=== PATIENT | male | born 1980 | race Caucasian/White ===

== ENCOUNTER 2022-12-20 00:08 | Observation (INO) | payer OTHER, SELFPAY ==
[2022-12-20] VITALS (13 sets, daily range): BP systolic 117–139; BP diastolic 69–89; PULSE 42–66; RESP 13–18; TEMP 36.4–37.1; O2SAT 95–99; BMI 26.5
--- NOTE | 2022-12-20 00:09 | ED_ITS ---
HPI - Chest Pain General: Chief Complaint: Chest Pain Stated Complaint: CP Time Seen by Provider: 12/20/22 00:09 History of Present Illness: Mr. Bartlett is a 42-year-old gentleman with significant past medical history of CAD with prior NH presenting to the emergency department for evaluation of chest pain. He notes history of chronic chest pain however when laying down and trying to sleep at onset of severe heaviness in the left chest. Feels like previous NH. He initially had severe symptoms which have subsequently improved. Denies associated other typical cardiac features. No other specific changes in health, exacerbating, or alleviating factors identified. Onset (ago): minute(s) Timing of current episode: constant Prior episodes: Yes Onset: during rest Pain location: left chest Pain radiation: none Severity: severe Quality: aching and heaviness Relieving factors: nothing Exacerbating factors: nothing Associated symptoms: Reports no associated symptoms Review of Systems General: Reports: 10 or more systems reviewed and unremarkable except in HPI and below PFSH ED PFSH: Medical History (Updated 01/01/23 @ 10:22 by Radha Torres) Bipolar disorder Bradycardia Chest pain Depression Heart attack has had around 30 different ones since age 24 History of blood clots present in lung during a surgery Psychiatric care PTSD (post-traumatic stress disorder) Surgical History History of fasciotomy 2013 History of foot surgery right foot shrapnel removed History of shoulder surgery 2016 History of tonsillectomy Family History Mother Cancer breast Father Cancer testicular, brain, lung Other Bleeding disorder Dementia Diabetes Hypertension Lung disease Denies family history of CAD (coronary artery disease) Clotting disorder Hyperlipidemia Psychiatric illness Chronic kidney disease (CKD) Anesthesia complication Stroke Social History (Updated 12/31/22 @ 08:29 by Esteban Aguirre MD) Smoking and tobacco status: current every day smoker smokeless tobacco Smokeless tobacco user: chewing tobacco Smokeless tobacco details: 1 can a day currently/normal about a can per 3-4 days Alcohol intake: former Counseling given: Yes Substance/Drug Use: current Substance/Drug use frequency: daily Lives independently: Yes Marital status: Single Current occupational status: employed 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 Ann/Bahai: Taoism Special ann needs: No Agree to transfusion: Yes Physical Exam Const: COMMON NORMALS: alert GENERAL APPEARANCE: cooperative and well developed HENMT: COMMON NORMALS: normocephalic and atraumatic HEAD & SCALP: normocephalic and atraumatic Eye: COMMON NORMALS: conjunctivae normal CONJUNCTIVA: Yes conjunctivae normal SCLERA: sclerae normal Neck/C-Spine: COMMON NORMALS: supple GENERAL: Yes trachea midline Resp: COMMON NORMALS: clear to auscultation bilaterally EFFORT & INSPECTION: Yes able to speak in complete sentences AUSCULTATION: clear to auscultation bilaterally Cardio: COMMON NORMALS: regular rate and regular rhythm RATE: regular rate RHYTHM: regular rhythm GI: COMMON NORMALS: Soft to palpation PALPATION: Yes Soft to palpation and No Tenderness to palpation present (GI) Extremity: GENERAL: Yes normal exam except as noted and No edema Neuro: COMMON NORMALS: moves all extremities SENSORIUM/ORIENTATION: Yes alert and No Orientation impaired Psych: COMMON NORMALS: mental status grossly normal and Normal thought process present THOUGHT PROCESS: Normal thought process present Course Vital Signs: Vital signs: Vital Signs Temperature 98.7 F 12/20/22 16:34 Pulse Rate 44 L 12/20/22 16:34 Respiratory Rate 13 12/20/22 16:34 Blood Pressure 130/77 12/20/22 16:34 Pulse Oximetry 99 12/20/22 16:34 Oxygen Delivery Me thod Room Air 12/20/22 11:33 MDM - Chest Pain Medical Decision Making 42-year-old gentleman with cardiac history presenting due to chest pain. Exam as above. She demonstrates sinus bradycardia, normal axis and intervals, no STEMI. Patient is not on beta-blockers. Denies history of bradycardia. Labs notable for essentially unremarkable hematologic panel. Metabolic panel with hypokalemia. Negative range 2-hour delta troponin. Chest x-ray with no lobar consolidation or pneumothorax. Patient treated with magnesium and potassium replenishment. Not low risk by heart score. The results of ED evaluation were discussed with the patient including plan for admission due to requirement for level of care not available if discharged to prevent significant worsening/deterioration. Patient agreeable with plan. Discussed with hospitalist service who was agreeable to admit patient. Medical Records I reviewed the patient's medical records. Lab Data I reviewed the patient's lab results. 12/20/22 00:28 12/20/22 00:28 Radiology Impressions Chest X-Ray 12/20/22 00:23 IMPRESSION: Left basilar opacity may represent superimposition of shadows, atelectasis, inflammation, or infection. Chest CTA 12/20/22 05:22 IMPRESSION: No acute findings. Laboratory Results WBC 7.8 10^3/uL (4.0-10.0) 12/20/22 00:28 RBC 4.43 10^6/uL (4.1-5.3) 12/20/22 00:28 Hgb 13.3 g/dL (11.7-16.6) 12/20/22 00:28 Hct 38.3 % (42.0-52.0) L 12/20/22 00:28 MCV 86.5 fl (80-94) 12/20/22 00:28 MCH 30.0 pg (28.0-34.0) 12/20/22 00: MCHC 34.7 g/dL (30.0-36.0) 12/20/22 00:28 RDW 11.5 % (12.1-15.1) L 12/20/22 00:28 Plt Count 267 10^3/cmm (130-400) 12/20/22 00:28 MPV 9.9 fL (7.4-10.4) 12/20/22 00:28 Neut % (Auto) 40.0 % 12/20/22 00:28 Lymph % (Auto) 47.6 % 12/20/22 00:28 Bartholomew % (Auto) 8.3 % 12/20/22 00:28 Eos % (Auto) 3.2 % 12/20/22 00:28 Baso % (Auto) 0.8 % 12/20/22 00:28 Neut # (Auto) 3.11 10^3/uL (1.8-7.7) 12/20/22 00:28 Lymph # (Auto) 3.7 10^3/uL (0.8-4.8) 12/20/22 00:28 Bartholomew # (Auto) 0.7 10^3/uL (0.2-0.9) 12/20/22 00:28 Eos # (Auto) 0.3 10^3/uL (0.0-0.8) 12/20/22 00:28 Baso # (Auto) 0.1 10^3/uL (0.0-0.1) 12/20/22 00:28 Nucleated RBC % (auto) 0 % 12/20/22 00: Nucleated RBCs # 0.0 /100WBC 12/20/22 00:28 Sodium 140 mmol/L (136-145) 12/20/22 00:28 Potassium 2.9 mmol/L (3.5-5.1) L 12/20/22 00:28 Chloride 106 mmol/L (98-107) 12/20/22 00:28 Carbon Dioxide 22 mmol/L (22-29) 12/20/22 00:28 Anion Gap 14.9 (5-19) 12/20/22 00:28 BUN 11 mg/dL (6-20) 12/20/22 00:28 Creatinine 0.7 mg/dL (0.7-1.2) 12/20/22 00:28 GFR Calculation 124.3 mL/min (90-130) 12/20/22 00: Glucose 131 mg/dL (65-115) H 12/20/22 00:28 Calculated Osmolality 291 mOsm/kg (285-295) 12/20/22 00:28 Calcium 8.8 mg/dL (8.5-10.5) 12/20/22 00:28 Magnesium 1.7 mg/dL (1.7-2.3) 12/20/22 00:28 Total Bilirubin 0.5 mg/dL (0.15-1.2) 12/20/22 00:28 AST 24 U/L (0-40) 12/20/22 00:28 ALT 13 U/L (0-41) 12/20/22 00:28 Alkaline Phosphatase 60 U/L (40-130) 12/20/22 00:28 Troponin T Baseline 11 ng/L (0-15) 12/20/22 00:28 Troponin T 120 Minute 7.74 ng/L (0-15) 12/20/22 02:16 Delta Troponin T -3.26 ABS# (0-10) L 12/20/22 02:16 NT-Pro-B Natriuret Pep 36 pg/mL (0-125) 12/20/22 00:28 Total Protein 6.7 g/dL (6.6-8.7) 12/20/22 00:28 Albumin 4.1 g/dL (3.5-5.2) 12/20/22 00:28 Globulin 2.6 g/dL (1.3-4.6) 12/20/22 00:28 Lipase 22 U/L (13-60) 12/20/22 00:28 Discharge Plan Discharge Patient Disposition: Placed in Observation Admit Provider: Shireen Dodge Clinical Impression: Chest pain, Bradycardia Discharge Diet: Cardiac Discharge Activity: Increase activity as tolerated Coding Level of Care Code ED 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
--- NOTE | 2022-12-20 00:10 | ECG_ITS ---
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 Measurements Intervals [place] Rate: 59 P: 75 WV: 155 QRS: 77 QRSD: 97 T: 67 QT: 415 QTc: 412 Interpretive Statements SINUS BRADYCARDIA WITH SINUS ARRHYTHMIA No previous ECG available for comparison Electronically Signed On 12-20-2022 8:31:02 CDT by Jay Buckner M.D. [id number]
--- NOTE | 2022-12-20 00:23 | XRR_ITS ---
PROCEDURE INFORMATION: Exam: XR Chest Exam date and time: 12/20/2022 12:29 AM Age: 42 years old Clinical indication: Chest pressure; Patient HX: C/O chest pain; Additional info: Cp TECHNIQUE: Imaging protocol: Radiologic exam of the chest. Views: 1 view. COMPARISON: No relevant prior studies available. FINDINGS: Lungs: Left basilar opacity may represent superimposition of shadows, atelectasis, inflammation, or infection. No lung mass. Pleural spaces: Unremarkable. No pleural effusion. No pneumothorax. Heart/Mediastinum: Unremarkable. No cardiomegaly. Bones/joints: Unremarkable. XR/XR chest 1V portable [id number] IMPRESSION: Left basilar opacity may represent superimposition of shadows, atelectasis, inflammation, or infection.
[2022-12-20 00:37] LABS: Basophils # 0.1 10^3/uL (0.0-0.1); Basophils % 0.8 %; Eosinophils # 0.3 10^3/uL (0.0-0.8); Eosinophils % 3.2 %; Hematocrit 38.3 % (42.0-52.0); Hemoglobin 13.3 g/dL (11.7-16.6); Lymphocytes # 3.7 10^3/uL (0.8-4.8); Lymphocytes % 47.6 %; Mean Corpuscular HGB Conc 34.7 g/dL (30.0-36.0); Mean Corpuscular Volume 86.5 fl (80-94); Mean Platelet Volume 9.9 fL (7.4-10.4); Monocytes # 0.7 10^3/uL (0.2-0.9); Monocytes % 8.3 %; Neutrophils # 3.11 10^3/uL (1.8-7.7); Nucleated Red Blood Cells % 0 %; Platelet Count 267 10^3/cmm (130-400); Red Blood Count 4.43 10^6/uL (4.1-5.3); Red Cell Distribution Width 11.5 % (12.1-15.1); White Blood Count 7.8 10^3/uL (4.0-10.0)
[2022-12-20 00:55] LABS: Magnesium 1.7 mg/dL (1.7-2.3)
[2022-12-20 00:57] LABS: Troponin(5th) Baseline 11 ng/L (0-15)
[2022-12-20 01:07] LABS: Alanine Aminotransferase 13 U/L (0-41); Albumin Level 4.1 g/dL (3.5-5.2); Alkaline Phosphatase 60 U/L (40-130); Anion Gap 14.9 (5-19); Aspartate Amino Transferase 24 U/L (0-40); Blood Urea Nitrogen 11 mg/dL (6-20); Calcium 8.8 mg/dL (8.5-10.5); Carbon Dioxide 22 mmol/L (22-29); Chloride 106 mmol/L (98-107); Globulin 2.6 g/dL (1.3-4.6); Glomerular Filtration Rate 124.3 mL/min (90-130); Glucose 131 mg/dL (65-115); Lipase 22 U/L (13-60); NT Pro B Type Natriuretic Pept 36 pg/mL (0-125); Osmolality Calculated 291 mOsm/kg (285-295); Sodium 140 mmol/L (136-145); Total Bilirubin 0.5 mg/dL (0.15-1.2); Total Protein 6.7 g/dL (6.6-8.7)
[2022-12-20 01:11] LABS: Potassium 2.9 mmol/L (3.5-5.1)
[2022-12-20] MEDS: magnesium sulfate premix 2 GM/50 ML PIGGYBACK IV (01:14)
[2022-12-20] MEDS: potassium chloride ER 20 mEq Tablet 60 MEQ PO (01:21)
--- NOTE | 2022-12-20 02:23 | ECG_ITS ---
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 Measurements Intervals [place] Rate: 41 P: 70 MI: 160 QRS: 63 QRSD: 118 T: 64 QT: 505 QTc: 419 Interpretive Statements SINUS BRADYCARDIA MODERATE INTRAVENTRICULAR CONDUCTION DELAY [110+ ms QRS DURATION] NONSPECIFIC ST ELEVATION [0.05+ mV ST ELEVATION] No previous ECG available for comparison Electronically Signed On 12-20-2022 8:32:52 CDT by Jay Buckner M.D. [id number]
[2022-12-20 02:47] LABS: Troponin 5 2HR 7.74 ng/L (0-15)
[2022-12-20 03:07] LABS: Troponin 5 2HR Delta -3.26 ABS# (0-10)
--- NOTE | 2022-12-20 05:22 | CTR_ITS ---
PROCEDURE INFORMATION: Exam: CTA Chest With Contrast Exam date and time: 12/20/2022 5:39 AM Age: 42 years old Clinical indication: Dyspnea; Additional info: Previous pe TECHNIQUE: Imaging protocol: Computed tomographic angiography of the chest with contrast. Exam focused on the arteries. 3D rendering (Not supervised by radiologist): MIP and/or 3D reconstructed images were created by the technologist. Radiation optimization: All CT scans at this facility use at least one of these dose optimization techniques: automated exposure control; mA and/or kV adjustment per patient size (includes targeted exams where dose is matched to clinical indication); or iterative reconstruction. Contrast material: OMNI 350; Contrast volume: 68 ml; Contrast route: INTRAVENOUS (IV); REPORTING DATA: Count of CT and Cardiac NM exams in prior 12 months: This patient has received 0 known CTs and 0 known cardiac nuclear medicine studies in the 12 months prior to the current study. COMPARISON: CR (CHEST, ) 12/20/2022 12:29 AM RADIATION DOSE METRICS: Total DLP (mGy-cm): 383.65 FINDINGS: Pulmonary arteries: Normal. No pulmonary emboli. Aorta: Unremarkable. No aortic aneurysm. No aortic dissection. Lungs: Unremarkable. No consolidation. No masses. Pleural spaces: Unremarkable. No pneumothorax. No pleural effusion. Heart: Unremarkable. No cardiomegaly. No pericardial effusion. Lymph nodes: Unremarkable. No enlarged lymph nodes. Bones/joints: Unremarkable. No acute fracture. Soft tissues: Unremarkable. CT/CT angio chest PE protcl [id number] IMPRESSION: No acute findings.
--- NOTE | 2022-12-20 05:24 | USCV_ITS ---
Shukri Bartlett Age: 42 Gender: M : 1980 Exam Date: 12/20/2022 09:46 Ordering Phys: Shireen Dodge MD Technologist: Alfonso Davies Exam Location: [facility] [place] Indication: chest pain BP: 127 / 80 HR: 43 Rhythm: Sinus Technical Quality: MEASUREMENTS (Male / Female) Normal Values 2D ECHO LV Diastolic Diameter PLAX 4.3 cm 4.2 - 5.9 / 3.9 - 5.3 cm LV Systolic Diameter PLAX 2.6 cm IVS Diastolic Thickness 1.1 cm 0.6 - 1.0 / 0.6 - 0.9 cm IVS Systolic Thickness 1.7 cm LVPW Diastolic Thickness 1.0 cm 0.6 - 1.0 / 0.6 - 0.9 cm LVPW Systolic Thickness 1.5 cm LVOT Diameter 2.1 cm LV Ejection Fraction 2D Teich 69.7 % LV Ejection Fraction MOD 2C 62.1 % LV Ejection Fraction 2C AL 61.6 % LA Diameter 3.9 cm Aorta at Sinotubular Diameter 2.9 cm IVC Diameter 2.1 cm M-MODE Aortic Annulus Diameter 3.2 cm LA Ao Ratio MM 1.4 MV E Point Septal Separation 1.4 cm DOPPLER AV Peak Velocity 136.0 cm/s LVOT Peak Velocity 98.0 cm/s AV Area Cont Eq vti 2.7 cm squared AV Area Cont Eq pk 2.4 cm squared MV Area PHT 5.0 cm squared Mitral E to A Ratio 1.8 MV E' Velocity 52.0 cm/s Mitral E to MV E' Ratio 7.4 Mitral E to LV E' Lateral Ratio 5.9 Mitral E to LV E' Septal Ratio 10.2 TR Peak Velocity 180.5 cm/s TR Peak Gradient 13.0 mmHg TV Peak E Velocity 115.0 cm/s Right Atrial Pressure 3.0 mmHg Pulmonary Artery Systolic Pressu 16.0 mmHg FINDINGS Left Ventricle Left radial is normal in size. LV systolic unction is normal with EF of 50-55%. No regional wall motion abnormalities are seen. Right Ventricle Normal in size and function Right Atrium Normal in size Left Atrium Normal in size Mitral Valve Structurally normal mitral valve. Aortic Valve Structurally normal aortic valve. No significant stenosis or regurgitation. Tricuspid Valve Mild tricuspid regurgitation. Pulmonary artery systolic pressure is normal Pulmonic Valve Not well visualized Pericardium Normal Aorta Normal in size IVC Appears to be normal CONCLUSIONS LV systolic function is normal with EF of 50-55% Mild tricuspid regurgitation. No comparison studies are available Jay Buckner MD (Electronically Signed) Final Date: 20 December 2022 14:46 S
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
[2022-12-20] MEDS: iohexol 350 mg/mL 500 mL Btl (per mL) IV (05:46)
[2022-12-20] MEDS: enoxaparin 100 mg/mL Syringe 90 MG SUBCUT (05:56)
--- NOTE | 2022-12-20 06:23 | ECG_ITS ---
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 Measurements Intervals [place] Rate: 45 P: 54 ND: 152 QRS: 27 QRSD: 86 T: 46 QT: 464 QTc: 401 Interpretive Statements SINUS BRADYCARDIA WITH SINUS ARRHYTHMIA ST ELEVATION, PROBABLY EARLY REPOLARIZATION [ST ELEVATION WITH NORMALLY INFLECTED T-WAVE] Compared to ECG 12/20/2022 02:34:33 Early repolarization now present Intraventricular conduction delay no longer present ST (T wave) deviation still present Electronically Signed On 12-20-2022 13:13:49 CDT by Jay Buckner M.D. [id number]
[2022-12-20 06:39] LABS: Troponin 5 6HR 6.83 ng/L (0-15)
[2022-12-20 06:55] LABS: Troponin 5 6HR Delta -4.17 ng/L (0-12)
--- NOTE | 2022-12-20 07:51 | PC.PHAR ---
pt states he takes care of his own medications-pt states he has been on xarelto 20mg daily since 2013 pt states he ran out a month ago but states he is suppose to still be taking-pt states he also takes lamictal 25mg daily but states he ran out about 2 weeks ago-notes are made in the pharmacy comments
[2022-12-20] MEDS: aspirin 81 mg EC Tablet PO (08:13)
[2022-12-20] MEDS: pantoprazole DR 40 mg Tablet PO (08:14)
--- NOTE | 2022-12-20 10:44 | P.DS_ITS ---
Discharge Providers Date of Admission: 12/20/22 04:33 Date of Discharge: December 20, 2022 Attending Provider at Admission: Shireen Dodge MD Attending Provider at Discharge: Carissa Monae MD Diagnoses at Discharge Discharge Diagnosis (1) Chest pain: Status: Acute (2) Bradycardia: Status: Acute Reason for Visit Reason for Visit: CP Hospital Course Hospital Course 42-year male with history of PE noncompliant with anticoagulating agent, recently going through bereavement because of his father's over the weekend presented with chief complaint of chest pain radiating towards his left arm, troponins flat EKG showing incomplete right bundle branch block with sinus bradycardia, patient remained hemodynamically stable, no active symptoms, patient stating that in [place] he had Holter monitoring done which showed bradycardia lowest heart rate noted was 130s, he has not received any phone calls, 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 software engineering project manager notified. 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, patient was feeling potholes when he start experiencing chest pain Physical Exam Narrative: Euvolemic Hemodynamically stable Heart rate 59 Currently on room air Pleasant and cooperative No active chest pain GCS 15 Discharge Data Studies Completed and Pending Completed Studies During Hospitalization Category Date Time Status CTA chest [CT angio chest PE protcl [id number]] Stat Cat Scan 12/20/22 05:22 Completed XR chest 1V portable [id number] Stat Exams 12/20/22 00:23 Completed Pending at discharge Category Date Time Status Complete Blood Count w/Auto AM LABS Lab 12/21/22 04:00 Ordered Comprehensive Metabolic Panel AM LABS Lab 12/21/22 04:00 Ordered HBA1C [Hemoglobin A1C] AM LABS Lab 12/21/22 04:00 Ordered Lipid Panel AM LABS Lab 12/21/22 04:00 Ordered NT Pro B Type Natriuretic Pept AM LABS Lab 12/21/22 04:00 Ordered CV. echo complete* [id number] Routine Ultrasound 12/20/22 05:24 Taken Radiology Impressions Chest X-Ray 12/20/22 00:23 IMPRESSION: Left basilar opacity may represent superimposition of shadows, atelectasis, inflammation, or infection. Chest CTA 12/20/22 05:22 IMPRESSION: No acute findings. Laboratory Results WBC 7.8 10^3/uL (4.0-10.0) 12/20/22 00:28 RBC 4.43 10^6/uL (4.1-5.3) 12/20/22 00:28 Hgb 13.3 g/dL (11.7-16.6) 12/20/22 00: Hct 38.3 % (42.0-52.0) L 12/20/22 00: MCV 86.5 fl (80-94) 12/20/22 00: MCH 30.0 pg (28.0-34.0) 12/20/22 00: MCHC 34.7 g/dL (30.0-36.0) 12/20/22 00: RDW 11.5 % (12.1-15.1) L 12/20/22 00: Plt Count 267 10^3/cmm (130-400) 12/20/22 00: MPV 9.9 fL (7.4-10.4) 12/20/22 00: Neut % (Auto) 40.0 % 12/20/22 00: Lymph % (Auto) 47.6 % 12/20/22 00: Benzie % (Auto) 8.3 % 12/20/22 00: Eos % (Auto) 3.2 % 12/20/22 00: Baso % (Auto) 0.8 % 12/20/22 00: Neut # (Auto) 3.11 10^3/uL (1.8-7.7) 12/20/22 00: Lymph # (Auto) 3.7 10^3/uL (0.8-4.8) 12/20/22 00:28 Benzie # (Auto) 0.7 10^3/uL (0.2-0.9) 12/20/22 00: Eos # (Auto) 0.3 10^3/uL (0.0-0.8) 12/20/22 00: Baso # (Auto) 0.1 10^3/uL (0.0-0.1) 12/20/22 00:28 Nucleated RBC % (auto) 0 % 12/20/22 00: Nucleated RBCs # 0.0 /100WBC 12/20/22 00:28 Sodium 140 mmol/L (136-145) 12/20/22 00:28 Potassium 2.9 mmol/L (3.5-5.1) L 12/20/22 00:28 Chloride 106 mmol/L (98-107) 12/20/22 00:28 Carbon Dioxide 22 mmol/L (22-29) 12/20/22 00:28 Anion Gap 14.9 (5-19) 12/20/22 00:28 BUN 11 mg/dL (6-20) 12/20/22 00:28 Creatinine 0.7 mg/dL (0.7-1.2) 12/20/22 00:28 GFR Calculation 124.3 mL/min (90-130) 12/20/22 00:28 Glucose 131 mg/dL (65-115) H 12/20/22 00:28 Calculated Osmolality 291 mOsm/kg (285-295) 12/20/22 00:28 Calcium 8.8 mg/dL (8.5-10.5) 12/20/22 00:28 Magnesium 1.7 mg/dL (1.7-2.3) 12/20/22 00:28 Total Bilirubin 0.5 mg/dL (0.15-1.2) 12/20/22 00:28 AST 24 U/L (0-40) 12/20/22 00:28 ALT 13 U/L (0-41) 12/20/22 00:28 Alkaline Phosphatase 60 U/L (40-130) 12/20/22 00:28 Troponin T Baseline 11 ng/L (0-15) 12/20/22 00:28 Troponin T 120 Minute 7.74 ng/L (0-15) 12/20/22 02:16 Delta Troponin T -3.26 ABS# (0-10) L 12/20/22 02:16 Troponin T Hi Sens 6Hr 6.83 ng/L (0-15) 12/20/22 06:15 Troponin T Hi Sens 6Hr Delta -4.17 ng/L (0-12) L 12/20/22 06:15 NT-Pro-B Natriuret Pep 36 pg/mL (0-125) 12/20/22 00:28 Total Protein 6.7 g/dL (6.6-8.7) 12/20/22 00:28 Albumin 4.1 g/dL (3.5-5.2) 12/20/22 00:28 Globulin 2.6 g/dL (1.3-4.6) 12/20/22 00:28 Lipase 22 U/L (13-60) 12/20/22 00:28 Vitals Last Vital Signs Temp 98.5 F 12/20/22 07:29 Pulse 59 L 12/20/22 07:29 Resp 15 12/20/22 07:29 BP 127/80 12/20/22 07:29 Pulse Ox 99 12/20/22 07:29 O2 Del Method Room Air 12/20/22 07:29 Discharge Plan Discharge Patient Disposition: Home Condition: Stable Prescriptions: New nitroglycerin 0.4 mg tablet, sublingual 0.4 mg sublingual Q5M Qty: 7 0RF Rx Instructions: do not exceed 3 doses per episode Continued Lamictal 25 mg Tablet 25 mg PO QAM Xarelto 20 mg Tablet 20 mg PO DAILY Qty: 60 0RF Rx Instructions: must administer with evening meal Discontinued Aspir-81 81 mg Tablet,Delayed Release (Dr/Ec) 81 mg PO DAILY Discharge Orders: Discharge Order (Routine); Ordered 12/20/22 Ordered By: Carissa Monae Referrals: Ivone Guevara MD [Physician] - 1 month (Establish care Please call Dr. Guevara's Office on Friday at [phone] to schedule a follow up appointment for 1 month. Thank you.) Esteban Aguirre MD [Physician] - 2 weeks (Establish care with new PCP) Discharge Diet: Cardiac Discharge Activity: Increase activity as tolerated Patient Instructions: Opioid Safety Discharge Attestations Time Spent in Discharge Care*: greater than 30 min Quality Metrics Clinical Quality Measures [ No reported AMI, CVA or VTE this stay] Coding Level of Care Code Acute Code for g Fwd Diagnoses Chest pain R07.9 Bradycardia R00.1
[2022-12-20] MEDS: acetaminophen 325 mg Tablet 650 MG PO (15:32)
--- NOTE | 2022-12-20 16:54 | PC.NURSE ---
discharge instructions given and explained.pt verb understanding of instructions.discharged ambulatory to exit at this time.daughter to drive pt home
== END 2022-12-20 16:56 | disposition home or self-care (01) ==
LOC: ER 03:50 → CSU 04:34
PROVIDERS: Admitting Provider Student in an Organized Health Care Education/Training Program; Emergency Provider Emergency Medicine; PCP Family Medicine; Visit Provider Internal Medicine
DX: I45.10 Unspecified right bundle-branch block (principal); R00.1 Bradycardia, unspecified; F31.9 Bipolar disorder, unspecified; Z86.711 Personal history of pulmonary embolism; F43.10 Post-traumatic stress disorder, unspecified; F17.220 Nicotine dependence, chewing tobacco, uncomplicated; T45.516A Underdosing of anticoagulants, initial encounter; Z91.120 Patient's intentional underdosing of medication regimen due to financial hardship
CPT/HCPCS: 36415; 71045; 71275; 80053; 83690; 83735; 83880; 84484; 85025; 93005; 93306; 96372; 96374; 99285; G0378; J1650; J3475; Q9967

== ENCOUNTER → 2022-12-31 08:44 | Outpatient (BNVA) | payer OTHER, SELFPAY | PROVIDERS: PCP Family Medicine; Visit Provider Family Medicine | DX: F41.9 Anxiety disorder, unspecified (principal); E87.6 Hypokalemia; F31.9 Bipolar disorder, unspecified; Z86.718 Personal history of other venous thrombosis and embolism; R00.1 Bradycardia, unspecified | CPT/HCPCS: 80048 ==